=== PATIENT | male | born 1985 | race Caucasian/White ===

== ENCOUNTER 2022-05-09 05:37 | Emergency (ER) | payer BC, SELFPAY ==
[2022-05-09] VITALS (21 sets, daily range): BP systolic 126–151; BP diastolic 84–106; PULSE 74–92; RESP 14–25; TEMP 36.3; O2SAT 100
--- NOTE | ~2022-05-09 | CT_ITS ---
EXAMINATION: CT abdomen pelvis wo con DATE: 05/09/2022 06:58 INDICATION: Left flank pain. TECHNIQUE: Computed tomography (CT) of the abdomen and pelvis was performed without intravenous contr ast. Automated exposure control and iterative reconstruction technique were employed. The dose-length product was 674.74 mGy-cm. COMPARISON: None. FINDINGS: The visualized portions of the lung bases are clear without pneumonia or pleural effusion. The heart size is normal. No pericardial effusion. The liver, gallbladder, spleen, pancreas, and adre nal glands are normal. There are two 2 mm stones in right kidney. There is a 2 mm stone at left urete rovesicular junction. There is mild left hydronephrosis and hydroureter. There are three 2-3 mm stone s in left kidney. There is a right inguinal hernia containing fat. There are no dilated loops of avril l. The appendix is normal. There are no pathologically enlarged lymph nodes. There is no free intrape ritoneal fluid. 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 IMPRESSION: 1. 2 mm stone at left ureterovesicular junction with mild left hydronephrosis and hydroureter. 2. Small bilateral nonobstructing kidney stones. Reviewed, dictated and finalized at location A. IMPRESSION: 1. 2 mm stone at left ureterovesicular junction with mild left hydronephrosis a nd hydroureter. 2. Small bilateral nonobstructing kidney stones.
--- NOTE | 2022-05-09 06:37 | ED.GENADULT ---
HPI - General Adult General Chief complaint: Abdominal Pain <Nikolas Wellington MD - Last Filed: 05/09/22 06:42> Stated complaint: flank pain <Nikolas Wellington MD - Last Filed: 05/09/22 06:42> Time Seen by Provider: 05/09/22 06:34 <Nikolas Wellington MD - Last Filed: 05/09/22 06:42> History of Present Illness HPI narrative: Patient is a 36-year-old gentleman presents the emergency department with chief complaint of abdominal pain. Patient reports that started having pain in the left flank and left lower quadrant. Patient reports that the pain is sharp reports is not able to get improved in any way shape or form. Patient states that he is unable to get comfortable and reports that never had symptoms like this before reports the pain radiates into his groin. <Nikolas Wellington MD - Last Filed: 05/09/22 06:42> Related Data Allergies/adverse reactions: Allergies Allergy/AdvReac Type Severity Reaction Status Date / Time No Known Allergies Allergy Mild Verified 05/09/22 05:51 <Nikolas Wellington MD - Last Filed: 05/09/22 06:42> Review of Systems Review of Systems: A 10 system review of systems was completed on the patient and is negative except for what is stated in the HPI. Nursing and ancillary documentation was reviewed. <Nikolas Wellington MD - Last Filed: 05/09/22 06:42> Exam Narrative: GENERAL: Well-appearing, well-nourished, and in no acute distress. HEAD: Normocephalic, atraumatic. EYES: PERRLA and EOMI. ENT: Nares clear, no rhinorrhea or epistaxis. Mucous membranes moist. NECK: Supple. CHEST: Clear to auscultation. No respiratory distress. HEART: Regular rate and rhythm. No murmur heard. Normal peripheral pulses. ABDOMEN: Soft, nontender, nondistended, normal active bowel sounds. EXTREMITIES: Normal range of motion. No edema. SKIN: Warm, dry, no rash. NEURO: No focal deficits. Alert and oriented x3. PSYCH: Normal mood and affect. <Nikolas Wellington MD - Last Filed: 05/09/22 06:42> Course Reevaluation(s) Reevaluation #1: Patient reports his pain has improved after receiving toradol. I discussed CT findings and discharge plan <Delisa Louis MD - Last Filed: 05/09/22 17:38> Date: 05/09/22 <Delisa Louis MD - Last Filed: 05/09/22 17:38> Time: 09:37 <Delisa Louis MD - Last Filed: 05/09/22 17:38> Vital Signs Vital signs: Vital Signs Temperature 97.3 F L 05/09/22 05:41 Pulse Rate 74 05/09/22 05:41 Respiratory Rate 20 05/09/22 05:41 Blood Pressure 151/99 H 05/09/22 05:41 Pulse Oximetry 100 05/09/22 05:41 Oxygen Delivery Room Air 05/09/22 05:41 Temperature 97.3 F L 05/09/22 05:41 Pulse Rate 91 05/09/22 07:02 Respiratory Rate 14 05/09/22 05:54 Blood Pressure 131/89 05/09/22 09:46 Pulse Oximetry 100 05/09/22 05:41 Oxygen Delivery Room Air 05/09/22 05:41 <Nikolas Wellington MD - Last Filed: 05/09/22 06:42> Vital Signs Temperature 97.3 F L 05/09/22 05:41 Pulse Rate 74 05/09/22 05:41 Respiratory Rate 20 05/09/22 05:41 Blood Pressure 151/99 H 05/09/22 05:41 Pulse Oximetry 100 05/09/22 05:41 Oxygen Delivery Room Air 05/09/22 05:41 Temperature 97.3 F L 05/09/22 05:41 Pulse Rate 91 05/09/22 07:02 Respiratory Rate 14 05/09/22 05:54 Blood Pressure 131/89 05/09/22 09:46 Pulse Oximetry 100 05/09/22 05:41 Oxygen Delivery Room Air 05/09/22 05:41 <Delisa Louis MD - Last Filed: 05/09/22 17:38> Medical Decision Making Vital Signs Vital Signs: Vital Signs Temperature 97.3 F L 05/09/22 05:41 Pulse Rate 74 05/09/22 05:41 Respiratory Rate 20 05/09/22 05:41 Blood Pressure 151/99 H 05/09/22 05:41 Pulse Oximetry 100 05/09/22 05:41 Oxygen Delivery Room Air 05/09/22 05:41 Temperature 97.3 F L 05/09/22 05:41 Pulse Rate 91 05/09/22 07:02 Respiratory Rate 14 05/09/22 05
[2022-05-09 06:51] LABS: Basophils Percent Auto 0.4 % (0.2-1.2); Eosinophils Absolute Auto 0.1 K/mm3 (0-0.3); Eosinophils Percent Auto 1.5 % (0-4.4); Hematocrit 46.6 % (42.0-52.0); Hemoglobin 15.5 g/dL (14.0-18.0); Immature Granulocyte Absolute 0.03 K/mm3 (0.00-0.031); Immature Granulocyte Percent A 0.3 % (0-0.5); Lymphocytes Absolute Auto 1.34 K/mm3 (0.9-3.2); Lymphocytes Percent Auto 14.5 % (18.3-44.2); Mean Corpuscular HGB Conc 33.3 g/dl (32-36); Mean Corpuscular Hemoglobin 30.8 pg (26-34); Mean Corpuscular Volume 92.5 fl (80-100); Mean Platelet Volume 10.4 fl (7.4-10.4); Monocytes Absolute Auto 0.4 K/mm3 (0.1-0.6); Monocytes Percent Auto 3.9 % (2.6-8.5); Neutrophils Absolute Auto 7.3 K/mm3 (1.3-6.7); Neutrophils Percent Auto 79.4 % (45.5-73.1); Platelet Count Result 215 k/mm3 (150-375); Red Blood Count 5.04 M/mm3 (4.6-6.20); White Blood Count 9.2 K/mm3 (4.5-10.0)
[2022-05-09 06:53] LABS: Appearance Urine Clear (Clear); Bilirubin Urine Negative (Negative); Blood Urine 2+ (Negative); Color Urine Yellow (Yellow); Glucose Urine UA Negative (Negative); Ketones Urine Negative (Negative); Leukocyte Esterase Ur Negative LEU/UL (Negative); Nitrate Urine Negative (Negative); Protein Urine Negative (Negative); Specific Grav Ur >= 1.030 (1.001-1.035); Urobilinogen Urine 0.2 mg/dL (<2.0); pH Urine 5.5 (5.0-9.0)
[2022-05-09 07:00] LABS: Alanine Aminotransferase 31 U/L (6-50); Albumin Level 4.8 g/dL (3.5-5.1); Alkaline Phosphatase 113 U/L (38-126); Anion Gap 13 mmol/L (8-16); Aspartate Amino Transferase 27 U/L (17-59); Bilirubin,Total 0.5 mg/dL (0.2-1.3); Blood Urea Nitrogen 18 mg/dL (9-20); Calcium 9.3 mg/dL (8.4-10.2); Carbon Dioxide 28 mmol/L (22-30); Chloride 101 mmol/L (98-107); Estimated CRCL calculation 72 ml/min; Estimated Glomerular Filt Rate > 60; Glucose 115 mg/dL (65-110); Lipase 119 U/L (23-300); Potassium 3.8 mmol/L (3.4-5.0); Sodium 142 mmol/L (137-145)
[2022-05-09 07:06] LABS: Bacteria Urine Trace /hpf; Mucus Urine Rare /lpf; Squamous Epithelial Cell Urine Rare /hpf (Few); WBC Urine 0-3 /hpf
[2022-05-09 07:12] LABS: Add Urine Microscopic? YES
--- NOTE | 2022-05-09 07:16 | PC.NURSE ---
Report given to RADHA Laurent at this time.
[2022-05-09] MEDS: ONDANSETRON INJ 4 MG/2 ML VIAL IV PUSH (07:19)
[2022-05-09] MEDS: SODIUM CHLORIDE 0.9% IV 1,000 ML 999 ML IV CONT (07:19)
[2022-05-09] MEDS: MORPHINE SULFATE (*CRX) 4 MG/ML INJ IV PUSH (07:19)
[2022-05-09] MEDS: KETOROLAC 30 MG/ML VIAL (*BKC) IV PUSH (08:42)
[2022-05-09] MEDS: TAMSULOSIN HCL 0.4 MG CAPSULE PO (08:42)
== END 2022-05-09 10:12 | disposition home or self-care (01) ==
PROVIDERS: Emergency Medicine; Emergency Provider General Practice
DX: N13.2 Hydronephrosis with renal and ureteral calculous obstruction (principal)
CPT/HCPCS: 36415; 74176; 80053; 81001; 83690; 85025; 96361; 96374; 96375; 99284; A9270; J1885; J2270; J2405; J7030